=== PATIENT | male | born 1950 | race Hispanic/Latino ===

== ENCOUNTER 2023-11-12 01:52 | Emergency (ER) | payer OTHER, MEDICARE ==
[~2023-11-12] VITALS: Ht 167.6 cm; Wt 132.9 kg
[2023-11-12 02:18] LABS: BASOPHILS # (AUTO) 0.07 K/uL (0.00-0.20); BASOPHILS % (AUTO) 0.4 % (0.0-5.0); EOSINOPHILS # (AUTO) 0.19 K/uL (0.00-0.70); HEMATOCRIT 41.7 % (42-54); LYMPHOCYTES # (AUTO) 1.6 K/uL (1.0-4.8); LYMPHOCYTES % (AUTO) 8.8 % (21.0-51.0); MEAN CORPUSCULAR HEMOGLOBIN 33.6 pg (27.0-33.0); MEAN CORPUSCULAR HGB CONC 33.8 g/dL (32.0-36.0); MEAN CORPUSCULAR VOLUME 99.3 fL (79-99); MONOCYTES # (AUTO) 1.2 K/uL (0.1-1.0); MONOCYTES % (AUTO) 6.3 % (3.0-13.0); NEUTROPHILS # (AUTO) 15.2 K/uL (1.8-7.7); PLATELET COUNT (AUTO) 278 K/uL (130-400); RED CELL DISTRIBUTION WIDTH 14.3 % (11.0-15.5); WHITE BLOOD COUNT (AUTO) 18.3 K/uL (4.8-10.8)
[2023-11-12] MEDS: CEFTRIAXONE 1G VIAL IVPB ONE (02:19)
[2023-11-12] MEDS: 0.9%NACL 1000ML 1,914 ML IV ONE (02:20)
[2023-11-12 02:30] LABS: CREATININE 1.5 mg/dL (0.5-1.3); POTASSIUM 4.2 mmol/L (3.5-5.1)
[2023-11-12 02:32] LABS: INR 0.98 (0.85-1.15); PROTHROMBIN TIME 10.6 SEC (9.6-11.6)
[2023-11-12 02:33] LABS: PARTIAL THROMBOPLASTIN TIME 26.8 SEC (26.3-35.5)
[2023-11-12 02:34] LABS: ALBUMIN 3.3 g/dL (3.5-5.0); TOTAL PROTEIN, SERUM 7.9 g/dL (6.0-8.3)
[2023-11-12 02:38] LABS: INFLUENZA TYPE A Negative For Type A (NEGATIVE); INFLUENZA TYPE B Negative For Type B (NEGATIVE)
[2023-11-12 02:39] LABS: COVID19 (SARS ANTIGEN RAPID) PRESUMPTIVE NEGATIVE (NEGATIVE)
[2023-11-12 02:39] LABS: APPEARANCE,URINE CLEAR (CLEAR); BILIRUBIN,URINE NEGATIVE (NEGATIVE); COLOR,URINE LIGHT-YELLOW (YELLOW); GLUCOSE, URINE (UA) NEGATIVE (NEGATIVE); KETONES,URINE NEGATIVE (NEGATIVE); LEUKOCYTE ESTERASE ,URINE 250 Leu/uL (NEGATIVE); NITRATE,URINE NEGATIVE (NEGATIVE); OCCULT BLOOD,URINE NEGATIVE (NEGATIVE); PROTEIN,URINE NEGATIVE (NEGATIVE); UROBILINOGEN,URINE 0.2 mg/dL (0.2-1.0)
[2023-11-12 02:52] LABS: ADD UA MICROSCOPIC YES
[2023-11-12 02:54] LABS: RAPID GROUP A STREP positive (NEGATIVE)
[2023-11-12 03:19] LABS: WBC,URINE 26-50 /HPF (0-1)
[2023-11-12 03:20] LABS: BACTERIA,URINE Few /HPF (None Seen); SQUAMOUS EPITHELIAL CELL,UR Rare /HPF (0-2)
[2023-11-12] MEDS ORDERED: AMOX500C2 PO (03:55)
[2023-11-12] MEDS ORDERED: CIPR-279 PO (03:55)
[2023-11-12] MEDS: ACETAMINOPHEN 500 MG TABLET PO ONE (04:23)
[2023-11-12] MEDS: AMOXICILLIN 500 MG CAPSULE PO ONE (04:24)
[2023-11-12 04:45] VITALS: BP 155/76; PULSE 89; RESP 20; O2SAT 96
== END 2023-11-12 04:47 | disposition home or self-care (01) ==
LOC: EDH 01:52
DX: J02.0 Streptococcal pharyngitis (principal); N39.0 Urinary tract infection, site not specified; E11.9 Type 2 diabetes mellitus without complications; I10 Essential (primary) hypertension; G47.30 Sleep apnea, unspecified; Z20.822 Contact with and (suspected) exposure to COVID-19; Z90.5 Acquired absence of kidney; Z98.890 Other specified postprocedural states
CPT/HCPCS: 99285; 96365; 71045; 96366; 87426; 84484; 80053; 83880; 85025; 85610; 85730; 87040 ×2; 87086 ×2; 87186; 87880; 87804 ×2; 83605; 81001; 36415; 93005; 84145; J7030; J0696